=== PATIENT | male | born 1995 | race Asian ===

== ENCOUNTER 2020-06-11 09:09 | Inpatient (IN) | payer MEDICAID ==
[~2020-06-11] VITALS: Ht 177.8 cm; Wt 102.3 kg
[2020-06-11] MEDS ORDERED: IOVERSOL 350 MG/ML 100 ML VIAL ONE (10:00)
[2020-06-11] MEDS ORDERED: SODIUM CHLORIDE 0.9% 100 ML ONE (10:00)
[2020-06-11] MEDS ORDERED: SODIUM CHLORIDE 0.9% 1,000 ML IV ONE ×2 (10:00→11:15)
[2020-06-11 11:01] LABS: CREATININE 1.42 mg/dL (0.60-1.30); POTASSIUM 4.2 mmol/L (3.5-5.1)
[2020-06-11 11:02] LABS: CALCIUM, TOTAL 9.2 mg/dL (8.8-10.5)
[2020-06-11 11:13] LABS: BILIRUBIN,TOTAL 0.5 mg/dL (0.1-1.0); TOTAL PROTEIN, SERUM 8.2 g/dL (6.4-8.2)
[2020-06-11 12:05] LABS: BASOPHILS % (AUTO) 0.3 % (0.0-2.0); EOSINOPHILS % (AUTO) 1.4 % (1.0-6.0); HEMATOCRIT 39.1 % (41-53); HEMOGLOBIN 13.3 g/dL (13.5-17.5); LYMPHOCYTES % (AUTO) 11.6 % (22.0-44.0); MEAN CORPUSCULAR HEMOGLOBIN 30.3 pg (26.0-34.0); MEAN CORPUSCULAR VOLUME 89 fL (80-100); MONOCYTES # (AUTO) 0.9 K/uL (0.1-1.0); MONOCYTES % (AUTO) 10.4 % (2.0-9.0); NEUTROPHILS # (AUTO) 6.6 K/uL (1.8-7.7); NEUTROPHILS % (AUTO) 76.3 % (40.0-70.0); PLATELET COUNT (AUTO) 220 K/uL (150-450); RED BLOOD CELL COUNT(AUTO) 4.39 MIL/uL (4.50-5.90); RED CELL DISTRIBUTION WIDTH 13.5 % (11.5-14.5)
[2020-06-11 12:21] LABS: PROTHROMBIN TIME 10.9 SEC (9.4-11.6)
[2020-06-11 12:50] LABS: APPEARANCE,URINE CLEAR (CLEAR); BILIRUBIN,URINE NEGATIVE (NEGATIVE); GLUCOSE, URINE (UA) NEGATIVE (NEGATIVE); KETONES,URINE NEGATIVE (NEGATIVE); LEUKOCYTE ESTERASE ,URINE NEGATIVE (NEGATIVE); NITRATE,URINE NEGATIVE (NEGATIVE); OCCULT BLOOD,URINE NEGATIVE (NEGATIVE); PROTEIN,URINE NEGATIVE (NEGATIVE); UROBILINOGEN,URINE 0.2 mg/dL (<=1.0)
[2020-06-11 13:01] LABS: BACTERIA,URINE None Seen /HPF (None Seen); RBC,URINE None Seen /HPF (0-2); SQUAMOUS EPITHELIAL CELL,UR Rare /LPF (None Seen); WBC,URINE None Seen /HPF (0-5)
[2020-06-11] MEDS ORDERED: ACETAMINOPHEN 325 MG TABLET PO PRN (14:30)
[2020-06-11] MEDS ORDERED: PIPERACILLIN/TAZO 3.375 GM/D5W 50 ML IV ONE (14:30)
[2020-06-11] MEDS ORDERED: DEXTROSE 5%-0.45% SODIUM CHL 1,000 ML IV ONE (14:30)
[2020-06-11] MEDS ORDERED: ONDANSETRON HCL 4 MG/2 ML VIAL IVP PRN (14:30)
[2020-06-11] MEDS ORDERED: MORPHINE SULFATE 2 MG/ML SYRINGE IVP PRN (14:30)
[2020-06-11] MEDS: PANTOPRAZOLE SODIUM 40 MG/VIAL IVP SCH (14:49)
[2020-06-11] MEDS ORDERED: BUPIVACAINE/EPI/PF 0.5% 30 ML VIAL ONE (15:09)
[2020-06-11] MEDS ORDERED: RINGERS SOLUTION,LACTATED 1,000 ML IV ONE ×2 (15:09→15:38)
[2020-06-11] MEDS ORDERED: FentaNYL CITRATE-PF 100 MCG/2 ML VIAL IVP PRN (15:30)
[2020-06-11] MEDS ORDERED: HYDROmorphone 2 MG/ML SYRINGE IVP PRN (15:30)
[2020-06-11] MEDS ORDERED: MEPERIDINE-PF 25 MG/ML VIAL IVP PRN (15:30)
[2020-06-11] MEDS ORDERED: SODIUM CHLORIDE 0.9% 1,000 ML ONE (16:09)
[2020-06-11 17:50] VITALS: BP 128/71
[2020-06-11] MEDS ORDERED: OXYGEN THERAPY IH SCH (20:00)
[2020-06-11 20:15] VITALS: BP 119/68
[2020-06-11] MEDS: PIPERACILLIN/TAZO 3.375 GM/D5W 50 ML IV SCH (20:43)
[2020-06-11] MEDS: DOCUSATE SODIUM 100 MG CAPSULE PO SCH (20:43)
[2020-06-12 00:27] VITALS: BP 124/73
[2020-06-12] MEDS: PIPERACILLIN/TAZO 3.375 GM/D5W 50 ML IV SCH ×2 (02:39→09:24)
[2020-06-12 04:47] VITALS: BP 127/7
[2020-06-12 07:02] LABS: EOSINOPHILS % (AUTO) 0 % (1.0-6.0); HEMOGLOBIN 13.8 g/dL (13.5-17.5); LYMPHOCYTES # (AUTO) 0.5 K/uL (1.0-4.8); LYMPHOCYTES % (AUTO) 4.3 % (22.0-44.0); MEAN CORPUSCULAR HEMOGLOBIN 29.9 pg (26.0-34.0); MEAN CORPUSCULAR HGB CONC 33.6 G/dL (31.0-37.0); MEAN CORPUSCULAR VOLUME 89 fL (80-100); MONOCYTES # (AUTO) 0.6 K/uL (0.1-1.0); NEUTROPHILS # (AUTO) 10.5 K/uL (1.8-7.7); PLATELET COUNT (AUTO) 241 K/uL (150-450); RED BLOOD CELL COUNT(AUTO) 4.62 MIL/uL (4.50-5.90); RED CELL DISTRIBUTION WIDTH 13.4 % (11.5-14.5)
[2020-06-12 07:22] LABS: NEUTROPHILS % (AUTO) 90.7 % (40.0-70.0)
[2020-06-12 07:55] LABS: ALBUMIN 3.3 g/dL (3.4-5.0); BILIRUBIN,TOTAL 0.6 mg/dL (0.1-1.0); CALCIUM, TOTAL 8.9 mg/dL (8.8-10.5); CREATININE 1.42 mg/dL (0.60-1.30); TOTAL PROTEIN, SERUM 7.9 g/dL (6.4-8.2)
[2020-06-12 08:12] LABS: POTASSIUM 4.2 mmol/L (3.5-5.1)
[2020-06-12 08:36] VITALS: BP 124/73
[2020-06-12] MEDS ORDERED: SODIUM CHLORIDE 0.9% 500 ML IV ONE (09:12)
[2020-06-12] MEDS: DOCUSATE SODIUM 100 MG CAPSULE PO SCH (09:24)
[2020-06-12] MEDS: PANTOPRAZOLE SODIUM 40 MG/VIAL IVP SCH (09:24)
[2020-06-12] MEDS ORDERED: MAGNESIUM HYDROXIDE SUSPENSION 30 ML UDCUP PO PRN (10:45)
[2020-06-12] MEDS ORDERED: HYDR-4061 PO (10:55)
[2020-06-12] MEDS ORDERED: DOCU-275 PO (10:56)
== END 2020-06-12 14:10 | disposition home or self-care (01) | DRG 263 ==
LOC: EMS 09:11 → 6S 14:23 → 4E 16:00
PROVIDERS: ADMIT Internal Medicine; ATTEND Internal Medicine
PROC: 0FT44ZZ Resection of Gallbladder, Percutaneous Endoscopic Approach (ICD-10-PCS; principal; 2020-06-11 16:00)
DX: K81.0 Acute cholecystitis (principal); E66.9 Obesity, unspecified; Z68.32 Body mass index [BMI] 32.0-32.9, adult; K59.00 Constipation, unspecified; N17.9 Acute kidney failure, unspecified; E86.0 Dehydration; E87.1 Hypo-osmolality and hyponatremia; K82.8 Other specified diseases of gallbladder; Z03.818 Encounter for observation for suspected exposure to other biological agents ruled out
CPT/HCPCS: 74177; 76705; 87081; 87426; C9113; G0238; J2543; J3490; J7030; J7040; J7050; J7120

== ENCOUNTER 2025-05-31 11:54 | Emergency (ER) | payer MEDICAID, OTHER ==
[~2025-05-31] VITALS: Ht 177.8 cm; Wt 104.0 kg
[~2025-05-31 11:54] MED LIST: DOCU-385 PO; HYDR-4061 PO
[2025-05-31 12:15] LABS: COVID AG,FIA SOURCE NASAL SWAB
[2025-05-31 12:29] LABS: RAPID GROUP A STREP NEGATIVE (NEGATIVE)
[2025-05-31 12:39] LABS: SARS-COV2 (COVID) ANTIGEN,FIA Negative (Negative)
[2025-05-31 12:41] LABS: INFLUENZA TYPE A NEGATIVE FOR TYPE A (NEGATIVE); INFLUENZA TYPE B NEGATIVE FOR TYPE B (NEGATIVE)
[2025-05-31] MEDS ORDERED: IBUP-1492 PO (12:53)
[2025-05-31] MEDS ORDERED: GUAIF600 PO (12:53)
[2025-05-31] MEDS ORDERED: GUAI100L96 PO (12:53)
[2025-05-31 13:08] VITALS: BP 122/75; PULSE 102; RESP 18; TEMP 98.5; O2SAT 100
[2025-05-31] MEDS ORDERED: BISA-151 PO (14:23)
== END 2025-05-31 13:45 | disposition home or self-care (01) ==
LOC: EMS 11:59
DX: J02.9 Acute pharyngitis, unspecified (principal); B97.89 Other viral agents as the cause of diseases classified elsewhere; K59.00 Constipation, unspecified; Z79.899 Other long term (current) drug therapy; Z20.822 Contact with and (suspected) exposure to COVID-19
CPT/HCPCS: 87430; 87804; 99283